=== PATIENT | male | born 1995 | race Caucasian/White ===

== ENCOUNTER 2017-11-25 19:17 | Emergency (ER) | payer OTHER ==
[2017-11-25] MEDS: IBUPROFEN 600 MG TAB PO (23:20)
== END 2017-11-26 02:55 | disposition home or self-care (01) ==
LOC: FTE 19:17
DX: S53.402A Unspecified sprain of left elbow, initial encounter (principal); S50.02XA Contusion of left elbow, initial encounter; V00.131A Fall from skateboard, initial encounter; Y92.9 Unspecified place or not applicable
CPT/HCPCS: 29105; 73080-LT; 99283-25